=== PATIENT | male | born 1960 | race Caucasian/White ===

== ENCOUNTER 2020-10-10 23:06 | Inpatient (IN) | payer BC ==
[~2020-10-10] VITALS: Ht 185.4 cm; Wt 137.8 kg
[2020-10-10] MEDS ORDERED: SODIUM CHLORIDE 0.9% 1,000ML IVBOLUS ONE (23:30)
[2020-10-10] MEDS ORDERED: DILTIAZEM 5 MG/ML, 5ML IVPush ONE ×2 (23:30)
[2020-10-10] MEDS ORDERED: DILTIAZEM 5 MG/ML, 5ML ONE (23:31)
--- NOTE | 2020-10-10 23:35 | NUR ---
PIV STARTED PT MEDICATED PER MAR FOR RAPID HR
[2020-10-10 23:39] LABS: BASOPHILS % (AUTO) 0 % (0-1); EOSINOPHILS % (AUTO) 2 % (1-7); LYMPHOCYTES % (AUTO) 32 % (22-44); MEAN CORPUSCULAR HEMOGLOBIN 29.7 pg (27.5-34.5); MEAN CORPUSCULAR HGB CONC 34.3 g/dL (33.2-36.2); MEAN PLATELET VOLUME 8.2 fL (7.4-10.4); MONOCYTES % (AUTO) 9 % (2-9); NEUTROPHILS % (AUTO) 57 % (42-75); PLATELET COUNT 247 x10^3/uL (130-400); RED BLOOD COUNT 5.74 x10^6/uL (4.38-5.82)
--- NOTE | 2020-10-10 23:40 | NUR ---
PT HR STILL ELEVATED 140'S, SECOND DOSE OF CARDIZEM GIVEN
[2020-10-10] MEDS ORDERED: METOPROLOL 1 MG/ML, 5ML ONE (23:54)
[2020-10-10 23:55] LABS: ALANINE AMINOTRANSFERASE 29 U/L (12-78); ALBUMIN 3.7 g/dL (3.4-5.0); ANION GAP 4 mmol/L (5-15); CALCIUM 8.6 mg/dL (8.5-10.1); CHLORIDE 111 mmol/L (98-107); CREATININE 0.96 mg/dL (0.7-1.3)
--- NOTE | 2020-10-10 23:55 | NUR ---
PER ERP 5MG OF METOPROLOL IV TO BE GIVEN PT HR 140'S-150'S
[2020-10-11] LABS: ALKALINE PHOSPHATASE 84 U/L (45-117); BILIRUBIN,TOTAL 0.6 mg/dL (0.2-1.0); TOTAL PROTEIN 7.3 g/dL (6.4-8.2); TROPONIN I < 0.015 ng/mL (0.000-0.045)
[2020-10-11] MEDS ORDERED: METOPROLOL 1 MG/ML, 5ML IVPush ONE
--- NOTE | 2020-10-11 00:40 | NUR ---
PT RESTING RANDY GURNEY NADN EYES CLOSED, RESP EVEN AND UNLABORED HR REMAINS ELEVATED IN 130'S-140'S
--- NOTE | 2020-10-11 00:45 | NUR ---
ROSSANA GTT REQ FROM PHARM AT THIS TIME.
[2020-10-11] MEDS ORDERED: DILTIAZEM 125 MG in SODIUM CHLORIDE 0.9% 100 ML IV SCH (01:00)
--- NOTE | 2020-10-11 01:16 | NUR ---
REPORT TO TANGELA LOAIZA PT READY FOR TRANSFER TO [facility], ALL QUESTIONS ADDRESSED.
[2020-10-11] MEDS ORDERED: ACETAMINOPHEN 325 MG TABLET PO PRN ×2 (01:30→08:00)
[2020-10-11] MEDS ORDERED: ENALAPRILAT 1.25 MG/ML, 2ML IVPush PRN (01:30)
[2020-10-11] MEDS ORDERED: ONDANSETRON 2MG/ML, 2ML IVPush PRN ×2 (01:30→08:00)
[2020-10-11] MEDS ORDERED: DOCUSATE 100 MG CAPSULE PO PRN (01:30)
[2020-10-11] MEDS ORDERED: BACLOFEN 10 MG TABLET PO PRN (01:30)
[2020-10-11] MEDS ORDERED: morphine SULFATE 10 MG/ML, 1ML IVPush PRN (01:30)
[2020-10-11] MEDS ORDERED: OXYcodone IR 5MG TABLET PO PRN (01:30)
[2020-10-11] MEDS ORDERED: ZOLPIDEM 5MG TABLET PO PRN (01:30)
[2020-10-11] MEDS ORDERED: GUAIFENESIN/DM 200-20MG, 10ML UDC PO PRN (01:30)
[2020-10-11 01:40] VITALS: BP 132/78
[2020-10-11] MEDS ORDERED: METO25TA91 PO (01:43)
[2020-10-11] MEDS ORDERED: FLEC100T PO (01:43)
[2020-10-11] MEDS: SODIUM CHLORIDE 0.9% 1,000 ML IV SCH ×2 (02:44→11:55)
[2020-10-11] MEDS ORDERED: METOPROLOL SUCCINATE 25 MG TAB.ER.24H ONE (03:33)
[2020-10-11] MEDS: METOPROLOL SUCCINATE 25 MG TAB.ER.24H PO SCH (03:48)
[2020-10-11 04:53] LABS: BASOPHILS % (AUTO) 1 % (0-1); EOSINOPHILS % (AUTO) 2 % (1-7); LYMPHOCYTES % (AUTO) 37 % (22-44); MEAN CORPUSCULAR HEMOGLOBIN 29.5 pg (27.5-34.5); MEAN CORPUSCULAR HGB CONC 33.7 g/dL (33.2-36.2); MEAN PLATELET VOLUME 8.3 fL (7.4-10.4); MONOCYTES % (AUTO) 10 % (2-9); NEUTROPHILS % (AUTO) 51 % (42-75); PLATELET COUNT 222 x10^3/uL (130-400); RED CELL DISTRIBUTION WIDTH 13.6 % (9.4-14.8)
[2020-10-11 05:04] LABS: ANION GAP 4 mmol/L (5-15); CALCIUM 7.9 mg/dL (8.5-10.1); CHLORIDE 112 mmol/L (98-107)
[2020-10-11] MEDS ORDERED: METOPROLOL SUCCINATE 25 MG TAB.ER.24H PO SCH (06:00)
[2020-10-11 06:41] VITALS: BP 138/72
[2020-10-11] MEDS ORDERED: FENTANYL PF 100 MCG/2ML ONE (07:41)
[2020-10-11] MEDS ORDERED: MIDAZOLAM 1 MG/ML, 2ML ONE (07:41)
[2020-10-11] MEDS ORDERED: hydrALAzine 20 MG/ML, 1ML IV PRN (08:00)
[2020-10-11] MEDS ORDERED: OXYcodone 5 MG/5 ML ORAL.SOL UDC PO PRN (08:00)
[2020-10-11] MEDS ORDERED: FENTANYL PF 100 MCG/2ML IV PRN (08:00)
[2020-10-11] MEDS ORDERED: HYDROmorphone 1 MG/ML, 1ML INJ IVPush PRN (08:00)
[2020-10-11] MEDS ORDERED: LABETALOL 5MG/ML, 20ML IV PRN (08:00)
[2020-10-11] MEDS ORDERED: EPHEDRINE 50 MG/ML, 1ML IVPush PRN (08:00)
[2020-10-11] MEDS ORDERED: PROMETHAZINE 25 MG/ML, 1ML IVPush PRN (08:00)
[2020-10-11] MEDS ORDERED: LIDOCAINE 1%, 20ML ONE (08:28)
[2020-10-11] MEDS ORDERED: METOCLOPRAMIDE 5 MG/ML, 2ML ONE ×2 (08:32)
[2020-10-11] MEDS ORDERED: ONDANSETRON 2MG/ML, 2ML ONE (08:36)
[2020-10-11] MEDS ORDERED: PROPOFOL 10 MG/ML, 20ML ONE (08:36)
[2020-10-11] MEDS ORDERED: ROCURONIUM 10MG/ML,5ML ONE ×2 (08:36→09:33)
[2020-10-11] MEDS ORDERED: DEXAMETHASONE 4 MG/ML, 1ML ONE (08:36)
[2020-10-11] MEDS ORDERED: SUCCINYLCHOLINE 20 MG/ML, 10ML ONE (08:36)
[2020-10-11] MEDS ORDERED: SUGAMMADEX 200 MG/2 ML IVPush ONE (08:37)
[2020-10-11] MEDS ORDERED: HEPARIN 1,000 UNITS/ML, 10ML ONE ×3 (08:40→09:13)
[2020-10-11] MEDS ORDERED: ACETAMINOPHEN 650 MG/20.3 ML UDC ONE (11:12)
[2020-10-11] MEDS ORDERED: OXYcodone 5 MG/5 ML ORAL.SOL UDC ONE (12:18)
[2020-10-11 13:25] VITALS: BP 124/71
[2020-10-11 19:24] VITALS: BP 117/65
[2020-10-11] MEDS: COLCHICINE 0.6 MG CAPSULE PO SCH (20:43)
[2020-10-11] MEDS: APIXABAN 5 MG TABLET PO SCH (20:43)
[2020-10-12 01:20] VITALS: BP 121/68
[2020-10-12 05:22] LABS: BASOPHILS % (AUTO) 0 % (0-1); EOSINOPHILS % (AUTO) 0 % (1-7); LYMPHOCYTES % (AUTO) 10 % (22-44); MEAN CORPUSCULAR HEMOGLOBIN 29.4 pg (27.5-34.5); MEAN CORPUSCULAR HGB CONC 33.3 g/dL (33.2-36.2); MEAN PLATELET VOLUME 8.6 fL (7.4-10.4); MONOCYTES % (AUTO) 5 % (2-9); NEUTROPHILS % (AUTO) 85 % (42-75); PLATELET COUNT 242 x10^3/uL (130-400); RED BLOOD COUNT 5.09 x10^6/uL (4.38-5.82); RED CELL DISTRIBUTION WIDTH 13.9 % (9.4-14.8)
[2020-10-12 05:28] LABS: ANION GAP 5 mmol/L (5-15); CALCIUM 8.1 mg/dL (8.5-10.1); CHLORIDE 108 mmol/L (98-107); CREATININE 0.94 mg/dL (0.7-1.3)
[2020-10-12 07:16] VITALS: BP 123/69
[2020-10-12] MEDS: COLCHICINE 0.6 MG CAPSULE PO SCH (08:43)
[2020-10-12] MEDS: APIXABAN 5 MG TABLET PO SCH (08:44)
[2020-10-12] MEDS: METOPROLOL SUCCINATE 25 MG TAB.ER.24H PO SCH (08:44)
[2020-10-12] MEDS ORDERED: ACET325T26 PO (09:31)
[2020-10-12] MEDS ORDERED: COLC0.6C3 PO (09:31)
[2020-10-12] MEDS ORDERED: APIX5TAB PO (09:31)
== END 2020-10-12 11:14 | disposition home or self-care (01) | DRG 309 ==
LOC: EDBD → ED 10-11 00:29 → MERGE 10-11 00:59 → EDBD 10-11 00:59 → EDIP 10-11 00:59 → 5SO 10-11 01:28 → DCLOUNGE 10-12 10:52
PROVIDERS: ADMIT Internal Medicine; ATTEND Hospitalist
DX: I48.0 Paroxysmal atrial fibrillation (principal); D68.69 Other thrombophilia; Z68.41 Body mass index [BMI] 40.0-44.9, adult; E66.9 Obesity, unspecified; Z20.822 Contact with and (suspected) exposure to COVID-19; Z88.6 Allergy status to analgesic agent; E87.8 Other disorders of electrolyte and fluid balance, not elsewhere classified; G47.30 Sleep apnea, unspecified; I45.10 Unspecified right bundle-branch block; I48.92 Unspecified atrial flutter; Z80.3 Family history of malignant neoplasm of breast; Z82.49 Family history of ischemic heart disease and other diseases of the circulatory system; Z83.3 Family history of diabetes mellitus; Z96.649 Presence of unspecified artificial hip joint; R94.4 Abnormal results of kidney function studies
CPT/HCPCS: 36415; 93655; 93656; 93657; 93662; 96374; 96375; 99285; J3490; 80048; 80053; 83735; 84443; 84484; 85025; 85347; 87635; 93005; 93306; 93312; 93321; 93325; C1732; C1766; C1893; C1894; G0378; J1100; J1644; J2250; J2405; J2704; J3010; C1730; C1759; J0330; J2765; J7030

== ENCOUNTER 2020-10-23 03:58 | Emergency (ER) | payer BC ==
[~2020-10-23] VITALS: Ht 185.4 cm; Wt 127.0 kg
[~2020-10-23 03:58] MED LIST: ACET325T26 PO; APIX5TAB PO; COLC0.6C3 PO; FLEC100T PO; METO25TA91 PO
[2020-10-23] MEDS ORDERED: DILTIAZEM 5 MG/ML, 5ML IVPush ONE (04:30)
[2020-10-23] MEDS ORDERED: DILTIAZEM 5 MG/ML, 5ML ONE (04:35)
[2020-10-23 04:43] LABS: BASOPHILS % (AUTO) 1 % (0-1); EOSINOPHILS % (AUTO) 2 % (1-7); LYMPHOCYTES % (AUTO) 35 % (22-44); MEAN CORPUSCULAR HEMOGLOBIN 29.6 pg (27.5-34.5); MEAN CORPUSCULAR HGB CONC 34.1 g/dL (33.2-36.2); MEAN PLATELET VOLUME 7.8 fL (7.4-10.4); MONOCYTES % (AUTO) 10 % (2-9); NEUTROPHILS % (AUTO) 52 % (42-75); PLATELET COUNT 273 x10^3/uL (130-400); RED BLOOD COUNT 5.53 x10^6/uL (4.38-5.82); RED CELL DISTRIBUTION WIDTH 13.6 % (9.4-14.8)
--- NOTE | 2020-10-23 04:45 | NUR ---
pt presents to ed with heart palp. pt had an ablasion on 10/11/20. pt had ekg done.
--- NOTE | 2020-10-23 04:54 | NUR ---
20 G IV started to left hand, labs drawn, and chest xray taken
--- NOTE | 2020-10-23 04:55 | NUR ---
pt self converted to sinus rhythm from a. flutter, ekg repeated.
[2020-10-23 04:56] LABS: ALBUMIN 3.4 g/dL (3.4-5.0); ANION GAP 5 mmol/L (5-15); CALCIUM 8.7 mg/dL (8.5-10.1); CHLORIDE 108 mmol/L (98-107); CREATININE 0.98 mg/dL (0.7-1.3)
[2020-10-23 05:00] VITALS: BP 117/86
[2020-10-23 05:06] LABS: TROPONIN I < 0.015 ng/mL (0.000-0.045)
--- NOTE | 2020-10-23 06:01 | NUR ---
Patient given discharge instructions and they have confirmed that they understand the instructions. Patient ambulatory with steady gait.
== END 2020-10-23 06:03 | disposition home or self-care (01) ==
LOC: ED 05:54
DX: I48.92 Unspecified atrial flutter (principal); I48.91 Unspecified atrial fibrillation; I45.19 Other right bundle-branch block
CPT/HCPCS: 36415; 71045; 80048; 82040; 83735; 84443; 84484; 85025; 93005; 99285